=== PATIENT | male | born 1980 | race Caucasian/White ===

== ENCOUNTER 2016-12-11 22:37 | Emergency (ER) | payer SELFPAY ==
--- NOTE | 2017-01-22 09:23 | ER ---
ADMIT: 12/11/2016 RM/LOC: ER [facility] MR#: [id number] [address] [id number] [address] [place] [address] Emergency Room Report SEX: M AGE: 36 : 1980 DATE: 12/11/2016 ADDENDUM: This patient comes to the ER for having severe back pain prior to arrival. He says he bent over to parts picker his cat and then had severe muscle spasms in his low back. He says it was a baby kitten, it was not even a large cat. He does not have issue of having back issues and is employed as a cook. On physical exam, he does have difficulty getting in and out of sitting position. His pain is in his low back. He is morbidly obese. IV of normal saline was started. He was given Toradol, morphine, and Valium. After that, he was able to get up and ambulate a lot more easily. I wrote a prescription for Valium and [place] and he is to follow up with his primary in the next few days if not feeling better. Please see my T-sheet. KEN Mccoy / Bebeto Morton MD / susan JOB #: [id number] CC: Bebeto Morton MD, Attending Physician Esteban Echevarria MD, Family Physician
== END 2016-12-12 01:35 | disposition home or self-care (01) ==
LOC: ER 22:37
DX: S39.012A Strain of muscle, fascia and tendon of lower back, initial encounter (principal); E11.9 Type 2 diabetes mellitus without complications; F17.210 Nicotine dependence, cigarettes, uncomplicated; Z90.49 Acquired absence of other specified parts of digestive tract; X50.9XXA Other and unspecified overexertion or strenuous movements or postures, initial encounter

== ENCOUNTER 2016-12-14 16:23 | Emergency (ER) | payer SELFPAY ==
--- NOTE | 2016-12-18 18:55 | ER ---
ADMIT: 12/14/2016 RM/LOC: ER [facility] MR#: [id number] [address] [id number] KAYLEN RUSSELL [address] [place] [address] Emergency Room Report SEX: M AGE: 36 : 1980 DATE: 12/14/2016 ADDENDUM: This patient comes into the ER because 5 days ago he was bending over to shrimp picker a mahesh when he pulled his back out. He came to the ER 3 days ago and was given [place] and Valium, but he still continues to have pain and he is not sure what he should do about work tomorrow. On physical exam, the pain is similar as it was before. He cannot get in and out of sitting position. It is in the low back and goes down into the left buttocks. He is able to get up in and out of sitting position without any difficulty. No difficulty urinating. DIAGNOSIS: Lower lumbar strain. I did give him a shot of Norflex and Toradol, and he is to follow up with his doctor if not feeling better. I also wrote a prescription for physical therapy. KEN Mccoy / Valentino Casey MD / susan JOB #: [id number] CC: Valentino Casey MD, Attending Physician Esteban Echevarria MD, Family Physician
== END 2016-12-14 17:18 | disposition home or self-care (01) ==
LOC: ER 16:23
DX: S39.012D Strain of muscle, fascia and tendon of lower back, subsequent encounter (principal); F17.210 Nicotine dependence, cigarettes, uncomplicated; Z90.49 Acquired absence of other specified parts of digestive tract; Z79.899 Other long term (current) drug therapy; X50.1XXD Overexertion from prolonged static or awkward postures, subsequent encounter

== ENCOUNTER 2017-03-16 10:51 | Emergency (ER) | payer SELFPAY | END 2017-03-16 11:35 | disposition home or self-care (01) | DX: L02.214 Cutaneous abscess of groin (principal); E11.9 Type 2 diabetes mellitus without complications; F17.210 Nicotine dependence, cigarettes, uncomplicated; Z90.49 Acquired absence of other specified parts of digestive tract; Z98.890 Other specified postprocedural states ==